=== PATIENT | male | born 1990 | race African-American/Black ===

== ENCOUNTER 2021-10-24 15:10 | Emergency (ER) | payer OTHER ==
[~2021-10-24] VITALS: Ht 172.7 cm; Wt 78.6 kg
[2021-10-24 15:14] VITALS: BP 143/81
--- NOTE | 2021-10-24 15:50 | PHYS DOC ---
Past History Past Medical History: Migraines Past Surgical History: No Surgical History Smoking: Non-smoker Alcohol Use: None Drug Use: None General Adult EDM: Chief Complaint: HEADACHE HPI: HPI: Patient is a 31-year-old male that presents today with a headache. Patient states while at work at around 11:00 today he started noticing some pain behind his right eye and is progressively gotten worse over the day. Patient also states he has nausea associated with his headache and has photosensitivity. Patient states he has had a couple of these in the past he says they come very randomly he is not on any chronic management of these migraines. He says he drinks very little caffeine in his diet, he says he drinks tea occasionally. Patient denies chest pain, shortness of air, fever, or cough Review of Systems: Review of Systems: Constitutional: Denies fever or chills Eyes: Denies change in visual acuity HENT: Denies nasal congestion or sore throat Respiratory: Denies cough or shortness of breath Cardiovascular: Denies chest pain or edema GI: Denies abdominal pain, nausea, vomiting, bloody stools or diarrhea : Denies dysuria Musculoskeletal: Denies back pain or joint pain Integument: Denies rash Neurologic: Right-sided head pain Endocrine: Denies polyuria or polydipsia Lymphatic: Denies swollen glands Psychiatric: Denies depression or anxiety Allergies: Allergies: none Physical Exam: PE: Constitutional: Well developed, well nourished, no acute distress, non-toxic appearance. [] HENT: Normocephalic, atraumatic, bilateral external ears normal, oropharynx moist, no oral exudates, nose normal. [] Eyes: PERRLA, EOMI, conjunctiva normal, no discharge, light sensitivity noted [] Neck: Normal range of motion, no tenderness, supple, no stridor. [] Cardiovascular:Heart rate regular rhythm, no murmur [] Lungs & Thorax: Bilateral breath sounds clear to auscultation [] Abdomen: Bowel sounds normal, soft, no tenderness, no masses, no pulsatile masses. [] Skin: Warm, dry, no erythema, no rash. [] Back: No tenderness, no CVA tenderness. [] Extremities: No tenderness, no cyanosis, no clubbing, ROM intact, no edema. [] Neurologic: Alert and oriented X 3, no neurofocal deficits, sensory intact Psychologic: Affect normal, judgement normal, mood normal. [] Current Patient Data: Vital Signs: Vital Signs Date Time Temp Pulse Resp B/P (MAP) Pulse Ox O2 Delivery O2 Flow Rate FiO2 10/24/21 15:14 98.3 70 16 143/81 (101) 99 Room Air Vital Signs Date Time Temp Pulse Resp B/P (MAP) Pulse Ox O2 Delivery O2 Flow Rate FiO2 10/24/21 15:14 98.3 70 16 143/81 (101) 99 Room Air EKG: EKG: [] Radiology/Procedures: Radiology/Procedures: [] Heart Score: C/O Chest Pain: N/A Risk Factors: Risk Factors: DM, Current or recent (<one month) smoker, HTN, HLP, family history of CAD, obesity. Risk Scores: Score 0 - 3: 2.5% MACE over next 6 weeks - Discharge Home Score 4 - 6: 20.3% MACE over next 6 weeks - Admit for Clinical Observation Score 7 - 10: 72.7% MACE over next 6 weeks - Early Invasive Strategies Course & Med Decision Making: Course & Med Decision Making Pertinent Labs and Imaging studies reviewed. (See chart for details) Spoke to patient about treatment for migraine headaches includes IV fluid, medications such as Toradol, Compazine, and Benadryl. Patient states she does not wish any of those medications he only wants a liter of IV fluids. 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 1615 RN states that patient is agreeable to Toradol and Zofran for nausea and pain will be given along with a liter of IV fluids. 1700 reassessment of patient shows that his pain is better, patient did after much discussion with the RN received Toradol and Zofran for nausea and pain. P atient states his pain is about a 3 out of 10 and his nausea is resolved. Patient instructed to go home and continue to hydrate take [id number] ibuprofen as needed for pain and to follow-up with his primary care physician for further management of his migraine Singh Disclaimer: Singh Disclaimer: This electronic medical record was generated, in whole or in part, using a voice recognition dictation system. Departure Departure: Impression: Primary Impression: Migraine Qualified Codes: G43.909 - Migraine, unspecified, not intractable, without status migrainosus Disposition: 01 HOME / SELF CARE / HOMELESS Condition: STABLE Referrals: DICK HENDRIX (PCP) Patient Instructions: Migraine Headache Additional Instructions: Take Tylenol and/or ibuprofen as needed for headache pain. Follow-up with your primary care physician if migraines persist for further management RIANNA GREER DEMAND EQUIPMENT REPAIRER Oct 24, 2021 15:50
[2021-10-24] MEDS ORDERED: IV NORMAL SALINE 1,000ML 1,000 ML IV ONE (16:00)
[2021-10-24] MEDS ORDERED: KETOROLAC 30 MG/ML VIAL. IVP ONE (16:15)
[2021-10-24] MEDS ORDERED: ONDANSETRON PF 4 MG/2 ML VIAL. IVP ONE (16:15)
== END 2021-10-24 17:25 | disposition home or self-care (01) ==
LOC: ER 15:10
DX: G43.909 Migraine, unspecified, not intractable, without status migrainosus (principal)
CPT/HCPCS: 96361; 96374; 96375; 99284; J1885; J2405; J7030

== ENCOUNTER 2022-03-02 21:15 | Emergency (ER) | payer OTHER ==
[~2022-03-02] VITALS: Ht 172.7 cm; Wt 83.0 kg
--- NOTE | 2022-03-02 21:30 | PHYS DOC ---
Past History Past Medical History: Migraines Past Surgical History: No Surgical History Smoking: Non-smoker Alcohol Use: None Drug Use: None General Adult EDM: Chief Complaint: HEADACHE HPI: HPI: "... I woke up with severe headache... I think it is my migraine... .. ".. " I did not take my migraine meds.. 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 Patient states symptoms are similar to prior migraine episodes but this is much worse... Pt. has had previous migraines. Has had Rx. of migraines in past, but pt did not take the meds. Patient states he has not taken the meds because he does not like taking meds. No history of trauma.. No history of travel. No specific ill contacts. No history immunosuppression. Up-to-date with vaccinations. Patient has never had a CT of his head. Pt. follows with Dr. Burden at [facility]. Pt. has not followed with neurologist. Patient states Zofran and Toradol made his headache better last time when he had to go to the emergency department. Review of Systems: Review of Systems: Constitutional: Denies fever or chills Eyes: Denies change in visual acuity. Complains of photophobia HENT: Denies nasal congestion or sore throat Respiratory: Denies cough or shortness of breath Cardiovascular: Denies chest pain or edema GI: Complains of nausea,. Denies pain and vomiting, bloody stools or diarrhea : Denies dysuria Musculoskeletal: Denies back pain or joint pain Integument: Denies rash Neurologic: Complains of severe headache,. Denies focal weakness or sensory changes Endocrine: Denies polyuria or polydipsia Lymphatic: Denies swollen glands Psychiatric: Denies depression or anxiety Family History: Family History: Noncontributory to presentation Current Medications: Current Meds: See nursing for home meds Allergies: Allergies: Allergies Coded Allergies Type Severity Reaction Last Updated Verified No Known Drug Allergies 10/24/21 No Physical Exam: PE: Constitutional: Well developed, well nourished, no acute distress, non-toxic appearance. [] HENT: Normocephalic, atraumatic, bilateral external ears normal, oropharynx moist, no oral exudates, nose normal. Nasal rings and ear studs. Eyes: PERRLA, EOMI, conjunctiva normal, no discharge. [] EOMI. Fundus exam limited but appeared benign. Neck: Normal range of motion, no tenderness, supple, no stridor. [] Cardiovascular:Heart rate regular rhythm, no murmur [] Lungs & Thorax: Bilateral breath sounds equal apex on auscultation [] Abdomen: Bowel sounds normal, soft, no tenderness, no masses, no pulsatile masses. [] Skin: Warm, dry, no erythema, no rash. [] Back: No tenderness, no CVA tenderness. [] Extremities: No tenderness, no cyanosis, no clubbing, ROM intact, no edema. [] Neurologic: Alert and oriented X 3, normal motor function, normal sensory function, no focal deficits noted. [] DTRs +2 patella and brachial. Business Strategist equal. No drift. [id number]. Ambulatory without problems. Psychologic: Affect anxious, judgement normal, mood normal. [] EKG: EKG: [] Radiology/Procedures: Radiology/Procedures: [][place] [address] IMAGING REPORT Signed PATIENT: NATHAN DUARTE ACCOUNT: [id number] : 1990 LOCATION: ER AGE: 31 SEX: M EXAM STATUS: REG ER ORD. PHYSICIAN: ANTHONY LEE MD REASON: Hx. of recurrent severe headache PROCEDURE: CT HEAD WO CONTRAST INDICATION: Reason: Hx. of recurrent severe headache / Spl. Instructions: / History: COMPARISON: None. TECHNIQUE: Axial CT images obtained through the head without intravenous contrast. One or more of the following individualized dose reduction techniques were utilized for this examination: 1. Automated exposure control; 2. Adjustment of the mA and/or kV according to patient size; 3. Use of iterative reconstruction technique. FINDINGS: No intracranial hemorrhage. No significant midline shift. Ventricles and sulci are unremarkable. No acute osseous abnormality. IMPRESSION: * No acute intracranial hemorrhage. Electronically signed by: Kartik Kam MD (03/02/2022 10:33 PM) [employer]- [id number] DICTATED AND SIGNED BY: KARTIK KAM MD DATE: 03/02/222226 CC: DICK BURDEN; ANTHONY LEE MD ~ Heart Score: C/O Chest Pain: N/A Risk Factors: Risk Factors: DM, Current or recent (<one month) smoker, HTN, HLP, family history of CAD, obesity. Risk Scores: Score 0 - 3: 2.5% MACE over next 6 weeks - Discharge Home Score 4 - 6: 20.3% MACE over next 6 weeks - Admit for Clinical Observation Score 7 - 10: 72.7% MACE over next 6 weeks - Early Invasive Strategies Course & Med Decision Making: Course & Med Decision Making Pertinent Labs and Imaging studies reviewed. (See chart for details) Patient take meds. Directed. Patient take Zofran 8 up 4 times a for nausea associated with headache. ( Pt. reports has some of these meds) Follow-up primary care. Return if any concerns Patient reports migraine resolved at time of discharge. Impression: 1. Migraine Headache Symptoms [] Dragon Disclaimer: Singh Disclaimer: This electronic medical record was generated, in whole or in part, using a voice recognition dictation system. Departure Departure: Referrals: DICK BURDEN (PCP) Singh Disclaimer This chart was dictated in whole or in part using Voice Recognition software in a busy, high-work load, and often noisy Emergency Department environment. It may contain unintended and wholly unrecognized errors or omissions. ANTHONY LEE MD Mar 02, 2022 21:30
[2022-03-02] MEDS ORDERED: ONDANSETRON ODT 4 MG TAB.RAPDIS ONE (22:08)
[2022-03-02] MEDS: ONDANSETRON ODT 4 MG TAB.RAPDIS PO ONE (22:10)
--- NOTE | 2022-03-02 22:35 | RAD ---
INDICATION: Reason: Hx. of recurrent severe headache / Spl. Instructions: / History: COMPARISON: None. TECHNIQUE: Axial CT images obtained through the head without intravenous contrast. One or more of the following individualized dose reduction techniques were utilized for this examinat ion: 1. Automated exposure control; 2. Adjustment of the mA and/or kV according to patient size; 3 . Use of iterative reconstruction technique. FINDINGS: No intracranial hemorrhage. No significant midline shift. Ventricles and sulci are unremarkable. No acute osseous abnormality. IMPRESSION: * No acute intracranial hemorrhage. Electronically signed by: Velasquez Kam MD (03/02/2022 10:33 PM) [id number]
[2022-03-02] MEDS: KETOROLAC 60 MG/2 ML VIAL. IM ONE (23:52)
[2022-03-02] MEDS: SUMAtriptan SUCC 6 MG/0.5 ML VIAL SQ ONE (23:53)
[2022-03-03 00:50] VITALS: BP 112/66
== END 2022-03-03 00:35 | disposition home or self-care (01) ==
LOC: ER 21:15
DX: G43.909 Migraine, unspecified, not intractable, without status migrainosus (principal)
CPT/HCPCS: 70450; 96372; 99284; J1885; J3030; Q0162